=== PATIENT | female | born 1970 | race Caucasian/White ===

== ENCOUNTER 2023-09-09 06:19 | Emergency (ER) | payer OTHER, SELFPAY ==
[2023-09-09 06:19] VITALS: BMI 32.7
[2023-09-09 06:23] VITALS: BP 158/74
--- NOTE | 2023-09-09 06:55 | ED.GENMED ---
History of Present Illness
General
Chief Complaint: Back Pain
Source: patient, records and spouse
Exam Limitations: none
Time Seen by Provider: 09/09/23 06:29
Nursing documentation reviewed up to this point in time: agreed with
Travel History
Have you had any contact with someone who has COVID-19?: No
Do you have any symptoms of coronavirus? Fever > 100 degrees, chills, cough, shortness of breath, sore throat, loss of taste or smell, muscle aches, or headache?: No
History of Present Illness
History of Present Illness:
53-year-old female distant history of cervical disc disease, treated conservatively greater than 10 years ago presents with several acute onset of right low back pain sharp radiates to the buttock most of the night due to pain minimal relief with
Tylenol was fairly active few days ago doing some cleaning around the house that she could have injured her back, no direct trauma no fever chills no nausea or vomiting, has noticed some urinary frequency, no change in her bowel habits, does not
drink or smoke she gets vomiting with doxycycline
Past History
Past History
ED Past Medical History: Other (Cervical disc)
Social History
Tobacco: Non-smoker
Alcohol: None
Drug: None
Personal:
Living: with family
Employment: Employed
Phy Exam
Physical Exam
Physical Exam:
Physical Exam
General: 53 female looks uncomfortable but nontoxic standing upright
Neck: No jaundice
Heart: Regular
Lungs: no acute respiratory distress. clear bilaterally
Abdomen: Soft nontender
Neuro: alert and oriented. Painful right leg raise on the right spasm over the right gluteus musculature
Skin: no rash
Psychiatric: well kept. interactive and cooperative
Extremities: no edema.
Course
Orders/Labs/Results
Orders:
Orders
09/09/23 06:43
HYDROmorphone [Dilaudid] 0.5 mg IM NOW STA
Ketorolac [Toradol] 60 mg IM NOW STA
09/09/23 06:44
Diazepam [Valium] 5 mg PO NOW STA
Lumbar Spine, 2 or 3 View [CR Lumbar Spine 2 Or 3 Views] Urgent
Comment:
Reason For Exam: pain
09/09/23 06:59
Urinalysis Reflex To Culture Urgent
Date Specimen was Collected: 09/09/23
Time Specimen was Collected: 08:30
Vital Signs
Initial and Last Documented VS:
Initial Vital Signs
Temp Pulse Resp BP Pulse Ox
98.6 F 78 20 158/74 97
09/09/23 06:23 09/09/23 06:23 09/09/23 06:23 09/09/23 06:23 09/09/23 06:23
Last Documented Vital Signs
Temp Pulse Resp BP Pulse Ox
98.6 F 78 20 158/74 97
09/09/23 06:23 09/09/23 06:23 09/09/23 06:23 09/09/23 06:23 09/09/23 06:23
MDM/Problems Addressed
Differential Diagnosis Includes:
Lumbar radiculopathy, lumbago, strain strain, doubt AAA or UTI no signs of discitis by history physical
MDM/Problems Addressed:
Low back pain
Chronic conditions affecting care:
Prior cervical disc disease years ago
Acute Exacerbation and/or Progression of Chronic Illness: Other (Prior to this disease)
*Radiology
Radiology exam reviewed: radiology read reviewed
*Pulse Oximetry
Patient hypoxic: no
*EKG
Interpreted by ED Provider?: NA
*History Card Clerk Interpretation
Rate: History Card Clerk- N/A
*Critical Care Note
Total Time (30-74mins, 75-104mins- exclusive of procedures): Not Applicable
Data Reviewed
Review of Other/Old Records Reveals: Other (EMR reports 15 years ago)
Source: patient
Patient Management
Social determinants of health affecting care: Living situation and Strong social support
Update Note
Update Note:
Update x-ray noted multilevel DJD patient appears improved
Images reviewed with patient,
ED Attending Note
-
Portions of this chart may have been created with voice recognition software.� Occasional wrong word or��sound alike� substitutions may have occurred due to the inherent limitations of voice recognition software.
Discharge Plan
Departure
Patient Disposition: Home (Routine Discharge)
Date of Disposition: 09/09/23
Time of Disposition: 08:31
Patient with high blood pressure during this ER visit?: No
Condition: Good
Discharge Problem:
Low back pain
Instructions: Sciatica (DC), Radiculopathy (DC)
Prescriptions:
New
oxycodone-acetaminophen [Percocet] 5-325 mg tablet
1 tab PO Q4HPRN PRN (Reason: pain) Qty: 14 0RF
naproxen [Naprosyn] 500 mg tablet
500 mg PO BID PRN (Reason: Pain) Qty: 30 0RF
metaxalone 800 mg tablet
800 mg PO TID PRN (Reason: muscle pain) Qty: 14 0RF
Referrals:
Twila Valdez PA-C [Family Provider] -
Interventions
Interventions:
*Risk Screen - Suicide Last Done: 09/09/23 06:23
*General Assessment Last Done: 09/09/23 07:08
*Neglect/Abuse Screening Last Done: 09/09/23 06:23
ED- Fall Risk Assessment Last Done: 09/09/23 07:53
*ED COVID-19 Vaccine History Last Done: 09/09/23 06:23
ED-Musculoskeletal Assessment Last Done: 09/09/23 07:08
[2023-09-09] MEDS: TORADOL 60 MG IM (06:58)
[2023-09-09] MEDS: VALIUM 5 MG PO (06:58)
[2023-09-09] MEDS: DILAUDID 0.5 MG IM (06:58)
[2023-09-09 08:36] VITALS: BP 133/80
[2023-09-09 08:43] LABS: Urine Albumin Negative (Neg - Trace); Urine Bilirubin Negative (Negative); Urine Character Clear (Clear); Urine Color Yellow; Urine Glucose Negative (Negative); Urine Ketone Negative (Negative); Urine Leukocyte Trace (Negative); Urine Nitrite Negative (Negative); Urine Occult Blood Negative (Negative); Urine Specific Gravity 1.025 (<1.030); Urine Urobilinogen Negative (Neg - 1+)
[2023-09-09 09:03] LABS: Urine Bacteria Few (Negative); Urine Red Blood Cell 0-2 /HPF (0-2)
== END 2023-09-09 09:09 | disposition home or self-care (01) ==
LOC: EMR 06:19
PROVIDERS: EMERGENCY PHYSICIAN Emergency Medicine; FAMILY PHYSICIAN Student in an Organized Health Care Education/Training Program
DX: M54.50 Low back pain, unspecified (principal)
CPT/HCPCS: 99284; 96372 ×2; 72100; 81003; 81015